=== PATIENT | male | born 1940 | race Caucasian/White ===

== ENCOUNTER 2020-10-01 21:42 | Observation (INO) | payer MEDICARE ==
[~2020-10-01] VITALS: Ht 182.9 cm; Wt 79.5 kg
[2020-10-01] MEDS ORDERED: GLUCOPHAGE1000 MG PO (21:51)
[2020-10-01] MEDS ORDERED: FLOMAX0.4 MG PO (21:52)
[2020-10-01] MEDS ORDERED: TOPROL XL50 MG PO (21:52)
[2020-10-01] MEDS ORDERED: LIPITOR40 MG PO (21:52)
[2020-10-01] MEDS ORDERED: GLYBURIDE2.5 MG (21:52)
[2020-10-01] MEDS ORDERED: BAYER CHEWABLE81 MG PO (21:53)
[2020-10-01] MEDS ORDERED: FISH OIL 1,0001 CA1 PO (21:53)
[2020-10-01] MEDS ORDERED: PIOGLITAZONE15 MG PO (21:54)
[2020-10-01] MEDS ORDERED: CENTRUM MEN'S1 EACH PO (21:54)
[2020-10-01 22:20] LABS: BASOPHILS 0.7 % (0-2); EOSINOPHILS 0.2 % (0-7); HEMATOCRIT 38.2 % (42.0-54.0); LYMPHOCYTES 10.6 % (15-50); MCH 32.1 pg (26.0-34.0); MCHC 33.9 g/dL (31.0-37.0); MCV 94.6 fL (80.0-100.0); MONOCYTES 4.1 % (2-11); NEUTROPHILS 84.4 % (40-80); PLATELET COUNT 165 10x3/uL (130-400); RBC 4.04 10x6/uL (4.20-6.10); RDW 13.5 % (11.5-14.5); WBC 6.6 10x3/uL (4.8-10.8)
[2020-10-01 22:31] LABS: APTT 24.7 SECONDS (22.8-39.4); INR 1.12 (0.85-1.17); PROTIME 13.4 SECONDS (11.6-15.0)
[2020-10-01 22:32] LABS: CALC OSMOLALITY 284 mosm/kg (275-300); CALCIUM 8.6 mg/dL (8.5-10.1); CARBON DIOXIDE 28.1 mmol/L (21.0-32.0); CHLORIDE - SERUM 100 mmol/L (98-107); CREATININE - SERUM 1.5 mg/dL (0.6-1.3); D-DIMER-QUANTITATIVE 1.67 ug/mLFEU (0.20-0.54); GLUCOSE 179 mg/dL (74-106); POTASSIUM - SERUM 4.1 mmol/L (3.5-5.1); SODIUM 138 mmol/L (136-145); UREA NITROGEN 27 mg/dL (7-18); eGFR NON AFRICAN AMERICAN 48 mL/min (90-120)
[2020-10-01 22:45] LABS: ALBUMIN 3.6 g/dL (3.4-5.0); ALKALINE PHOSPHATASE 90 U/L (30-120); ALT (SGPT) 24 U/L (10-68); BILIRUBIN - TOTAL 1.04 mg/dL (0.2-1.3); LIPASE 145 U/L (73-393); MAGNESIUM - SERUM 1.8 mg/dL (1.8-2.4); PRO BNP 573 pg/mL (0-450); PROTEIN - SERUM 6.9 g/dL (6.4-8.2); TROPONIN-I < 0.017 ng/mL (0.000-0.060)
--- NOTE | 2020-10-02 00:22 | NUR ---
HEMOCCULT PERFORMED BY HCP WITH NEGATIVE RESULT.
[2020-10-02 00:23] VITALS: BP 135/57
[2020-10-02 01:30] VITALS: BP 122/65
[2020-10-02 02:30] VITALS: BP 102/59
--- NOTE | 2020-10-02 07:26 | NUR ---
2330) REC'D TO ROOM 2235 FROM ER VIA W/C. ALERT ORIENTED X3.0200) REFUSES HEART MONITOR EXPLAINED ITS NORMAL FOR TO MONITOR HEART WHEN YOU HAVE A HEART HISTORY AND BEING ADMITTED WITH EPIGASTRIC PAIN. STATES NOTHING WRONG WITH MY HEART.0700)REFUSES FINGER STICK BLOOD SUGAR ALSO STATES WE DON'T TAKE INSULIN INSTRUCTED TO TALK TO WHEN HE MAKES ROUNDS ABOUT THESE ISSUES VOICES UNDERSTANDING
[2020-10-02 08:03] LABS: BASOPHILS 0.1 % (0-2); EOSINOPHILS 0 % (0-7); HEMATOCRIT 37.5 % (42.0-54.0); HEMOGLOBIN 12.4 g/dL (13.5-17.5); IMMATURE GRANULOCYTES 0.2 % (0-5); LYMPHOCYTE ABS# 0.86 10x3/uL (1.32-3.57); LYMPHOCYTES 8.9 % (15-50); MCH 31.6 pg (26.0-34.0); MCHC 33.1 g/dL (31.0-37.0); MCV 95.4 fL (80.0-100.0); MEAN PLATELET VOLUME 9.1 fL (7.4-10.4); MONOCYTES 9.2 % (2-11); NEUTROPHIL ABS# 7.88 10x3/uL (1.78-5.38); NEUTROPHILS 81.6 % (40-80); PLATELET COUNT 139 10x3/uL (130-400); RBC 3.93 10x6/uL (4.20-6.10)
[2020-10-02 08:11] LABS: WBC 9.7 10x3/uL (4.8-10.8)
[2020-10-02 08:21] LABS: ANION GAP 11.8 mmol/L (8-16); CALCIUM 8.4 mg/dL (8.5-10.1); CARBON DIOXIDE 28.4 mmol/L (21.0-32.0); CREATININE - SERUM 1.5 mg/dL (0.6-1.3); POTASSIUM - SERUM 4.2 mmol/L (3.5-5.1)
[2020-10-02 08:30] LABS: ALBUMIN 3.2 g/dL (3.4-5.0); BILIRUBIN - TOTAL 1.14 mg/dL (0.2-1.3); PROTEIN - SERUM 5.9 g/dL (6.4-8.2); TROPONIN-I 0.026 ng/mL (0.000-0.060)
[2020-10-02 08:49] VITALS: BP 117/50
[2020-10-02 11:56] VITALS: BP 102/46
--- NOTE | 2020-10-02 15:53 | NUR ---
REPORT GIVEN TO JOSEMANUEL AND PT RETURNED TO ROOM IN STABLE CONDIITON
[2020-10-02 17:21] VITALS: Ht 182.9 cm; Wt 79.5 kg
[2020-10-02 20:00] VITALS: BP 108/54
[2020-10-03] VITALS: BP 106/47
[2020-10-03 04:00] VITALS: BP 103/51
--- NOTE | 2020-10-03 08:00 | NUR ---
0700 BEDSIDE REPORT RECEIVED FROM DAGO AWAKE ALERT IN BED ASKING FOR DISCHARGE PAPERS VOICES NO C/O OF PAIN AT THIS TIME REFUSES SCD EDUCATION PROVIDED
[2020-10-03 08:16] VITALS: BP 112/57
[2020-10-03 08:26] LABS: BASOPHILS 0.3 % (0-2); EOSINOPHILS 0.9 % (0-7); HEMATOCRIT 31.4 % (42.0-54.0); HEMOGLOBIN 10.9 g/dL (13.5-17.5); LYMPHOCYTES 19.2 % (15-50); MCHC 34.7 g/dL (31.0-37.0); MCV 94.9 fL (80.0-100.0); MEAN PLATELET VOLUME 7.3 fL (7.4-10.4); MONOCYTES 8.7 % (2-11); NEUTROPHILS 70.9 % (40-80); PLATELET COUNT 140 10x3/uL (130-400); RBC 3.31 10x6/uL (4.20-6.10); RDW 13.4 % (11.5-14.5)
[2020-10-03 08:29] LABS: WBC 5.9 10x3/uL (4.8-10.8)
[2020-10-03 08:41] LABS: ALBUMIN 2.7 g/dL (3.4-5.0); ANION GAP 9.6 mmol/L (8-16); BILIRUBIN - TOTAL 1.6 mg/dL (0.2-1.3); CALCIUM 8.1 mg/dL (8.5-10.1); CARBON DIOXIDE 26.3 mmol/L (21.0-32.0); CREATININE - SERUM 1.4 mg/dL (0.6-1.3); MAGNESIUM - SERUM 1.9 mg/dL (1.8-2.4); POTASSIUM - SERUM 3.9 mmol/L (3.5-5.1); PROTEIN - SERUM 5.5 g/dL (6.4-8.2); TROPONIN-I 0.041 ng/mL (0.000-0.060)
[2020-10-03] MEDS ORDERED: NYSTATIN100000 UN4 PO (10:32)
[2020-10-03] MEDS ORDERED: CARAFATE1 G PO (10:34)
[2020-10-03] MEDS ORDERED: PROTONIX40 MG PO (10:37)
[2020-10-03] MEDS ORDERED: FLUCONAZOLE150 MG PO (10:39)
[2020-10-03 12:43] VITALS: BP 129/57
--- NOTE | 2020-10-03 13:57 | NUR ---
1300 WRITTEN AND VERBAL D/C INSTRUCTIONS PROVIDED PT VERBALIZED UNDERSTANDING
== END 2020-10-03 13:30 | disposition home or self-care (01) ==
LOC: D.ER 21:42 → D.MS 10-02 03:32 → OBSVTIME 10-02 03:32 → D.MS 10-02 03:32
PROVIDERS: Emergency Medicine; Family Medicine; ADMIT Family Medicine; ATTEND Family Medicine
DX: K20.90 Esophagitis, unspecified without bleeding (principal); I25.10 Atherosclerotic heart disease of native coronary artery without angina pectoris; R07.9 Chest pain, unspecified; K92.0 Hematemesis; R13.10 Dysphagia, unspecified; E11.65 Type 2 diabetes mellitus with hyperglycemia; D64.9 Anemia, unspecified; N18.30 Chronic kidney disease, stage 3 unspecified; E11.22 Type 2 diabetes mellitus with diabetic chronic kidney disease; Z79.84 Long term (current) use of oral hypoglycemic drugs; E78.5 Hyperlipidemia, unspecified; M32.9 Systemic lupus erythematosus, unspecified; K22.2 Esophageal obstruction